=== PATIENT | female | born 2000 | race African-American/Black ===

== ENCOUNTER 2020-09-02 07:23 | Emergency (ER) | payer OTHER, SELFPAY ==
[2020-09-02] VITALS (14 sets, daily range): BP systolic 78–118; BP diastolic 50–77; PULSE 71–120; RESP 12–24; TEMP 36.7; O2SAT 95–100; BMI 34.1
--- NOTE | 2020-09-02 07:47 | ED.URI ---
HPI - URI/Sore Throat General Chief Complaint: Upper Respiratory Symptoms Stated Complaint: tonsils out and coughing up blood Time Seen by Provider: 09/02/20 07:37 Source: patient Mode of arrival: Ambulatory Limitations: no limitations History of Present Illness HPI Narrative: Patient is a 20-year-old female history of seizures postop day 1. Tonsillectomy presenting today with acute bleeding. She states she had tonsils taken out by Dr. montelongo yesterday in [place] was doing well in till about 3:00 a.m. which week got up to use the restroom she felt tickle in her throat started coughing and then was coughing up quite a bit of blood. She then later vomited a large amount of blood bringing her to the emergency department. She actually has quite a bit of dried blood all over her face hands and even feet. She still feels like it is bleeding some but overall it seems to have slowed. No dizziness or lightheadedness no longer nauseated Related Data Previous Rx's Medication Instructions Recorded ondansetron 4 mg PO Q8H PRN #10 tab 09/02/20 Allergies Allergy/AdvReac Type Severity Reaction Status Date / Time No Known Drug Allergies Allergy Verified 09/02/20 07:57 Review of Systems Review of Systems ROS Unobtainable: All systems reviewed & are unremarkable except as noted in HPI and below Constitutional Constitutional: Denies chills, Denies fever(s), Denies lethargy and Denies weakness ENT Ears, Nose, Mouth, and Throat: Reports as per HPI and Denies dizziness Cardiovascular Cardiovascular: Denies syncope, Denies dyspnea and Denies dyspnea on exertion Respiratory Respiratory: Denies cough, Denies dyspnea, Denies dyspnea on exertion and Denies wheezing Gastrointestinal Gastrointestinal: Denies abdominal pain, Denies change in bowel habits, Denies diarrhea, Denies nausea and Denies vomiting Integumentary/Breasts Skin/Breast: Denies pruritus, Denies erythema, Denies rash and Denies wounds Neurologic Neurologic: Denies dizziness, Denies syncope and Denies weakness Allergic/Immunologic Allergic/Immunologic: Denies wheezing Patient History Medical History Seizure Social History Smoking Status: Current every day smoker Smoking Status: Current every day smoker tobacco type: vaping Exam Initial Vital Signs Initial Vital Signs: Vital Signs Pulse Oximetry 98 09/02/20 07:51 GENERAL: Well-appearing, well-nourished and in no acute distress. HEENT: Head atraumatic,EOMI, pupils reactive, face symmetric, moist mucous membranes PHARYNX: No active bleeding noted at this time blood clot is noted on the right other postoperative changes noted on left CARDIOVASCULAR: Regular rate and rhythm without murmurs, rubs or gallops. RESPIRATORY: Breath sounds equal bilaterally, no wheezes rales or rhonchi. ABDOMEN: Soft, nontender. Normoactive bowel sounds all 4 quadrants. No guarding or rebound. EXTREMITIES: Normal range of motion, no clubbing or edema. Neurovascularly intact NEUROLOGICAL: Alert and oriented x4.Normal gait and speech. SKIN: Warm, dry, no laceration, no petechiae, no rashes or lesions. Course Orders Ordered: Discontinued Medications Albuterol/Ipratropium (Albuterol/Ipratropium 3 Ml Ampul) 3 ml INH NOW ONE Stop: 09/02/20 07:56 Last Admin: 09/02/20 08:03 Dose: Not Given Documented by: BAILEE Ondansetron HCl (Ondansetron 4 Mg Odt) 4 mg SL NOW ONE Stop: 09/02/20 11:35 Last Admin: 09/02/20 11:37 Dose: 4 mg Documented by: KELLY Tranexamic Acid (Tranexamic Acid 1,000 Mg Vial) 500 mg INH NOW ONE Stop: 09/02/20 07:43 Last Admin: 09/02/20 09:07 Dose: 500 mg Documented by: JARAD Vital Signs Vital signs: Vital Signs - 8 hr 09/02/20 10:00 09/02/20 10:30 09/02/20 11:00 Pulse Rate 77 89 87 Pulse Rate [Orthostatic Lying] Pulse Rate [Orthostatic Sitting] Pulse Rate [Orthostatic Standing] Respiratory Rate 15 17 15 Blood Pressure 95/59 L 102/64 106/71 Blood Pressure [Orthostatic Lying] Blood Pressure [Orthostatic Sitting] Blood Pressure [Orthostatic Standing] Pulse Oximetry 98 100 99 09/02/20 11:22 09/02/20 11:38 09/02/20 11:57 Pulse Rate 95 H Pulse Rate [Orthostatic Lying] 82 Pulse Rate [Orthostatic Sitting] 102 H Pulse Rate [Orthostatic Standing] 120 H Respiratory Rate 24 Blood Pressure 118/76 Blood Pressure [Orthostatic Lying] 107/77 Blood Pressure [Orthostatic Sitting] 106/77 Blood Pressure [Orthostatic Standing] 107/58 L Pulse Oximetry 09/02/20 13:07 Pulse Rate 84 Pulse Rate [Orthostatic Lying] Pulse Rate [Orthostatic Sitting] Pulse Rate [Orthostatic Standing] Respiratory Rate 16 Blood Pressure 96/65 Blood Pressure [Orthostatic Lying] Blood Pressure [Orthostatic Sitting] Blood Pressure [Orthostatic Standing] Pulse Oximetry 99 MDM - URI/Sore Throat Lab Data Attestation: I reviewed the patient's lab results. Result diagrams: 09/02/20 07:45 09/02/20 07:45 Labs: Lab Results 09/02/20 09/02/20 Range/Units 07:45 07:45 WBC 23.4 H (4.5-11.0) X10^3/uL RBC 5.06 (4.0-5.2) X10^6/uL Hgb 12.5 (12.0-16.0) g/dL Hct 39.4 (36-46) % MCV 77.8 L (80-100) fL MCH 24.6 L (26-34) PG MCHC 31.7 (30-36) % RDW 15.6 H (11.6-14.8) % Plt Count 308 (150-400) X10^3/uL Neut % (Auto) Not Reportable Lymph % (Auto) Not Reportable [place] % (Auto) Not Reportable Eos % (Auto) Not Reportable Baso % (Auto) Not Reportable Lymph # (Auto) Not Reportable [place] # (Auto) Not Reportable Baso # (Auto) Not Reportable Total Counted 100 Seg Neutrophils % 80.0 H (38-70) % Band Neutrophils % 5.0 (3-7) % Lymphocytes % (Manual) 8.0 L (25-45) % Atypical Lymphs % 2.0 H ( - 0) % Monocytes % (Manual) 5.0 (2-11) % Neutrophils # (Manual) 53731 H (7066-2333) /uL RBC Morphology Normal morphology Sodium 134 L (137-145) mmol/L Potassium 3.7 (3.4-5.1) mmol/L Chloride 100 (98-107) mmol/L Carbon Dioxide 29 (22-32) mmol/L BUN 10 (7-17) mg/dL Creatinine 0.70 (0.52-1.04) mg/dL Estimated GFR > 60.0 (>60) mL/min BUN/Creatinine Ratio 14.3 (6-22) Glucose 125 H (70-100) mg/dL Calcium 9.3 (8.4-10.2) mg/dL MDM Narrative Medical decision making narrative: Patient's bleeding seems to have slowed her airway is intact and she is maintaining it. I actually did see a blood clot on the right side. She is nebulized TXA to stabilize bleeding. 08:05 Dr. Burt ENT updated patient's symptoms test results at this time recommends continued monitoring. 9:00 a.m. Currently sleeping 10:00 a.m. patient is alert tolerating fluids. At discharge she got a real dizzy and lightheaded after IV was pulled. She was monitored and given ODT Zofran. Continues to complain of pain she took her own oxycodone. Discussed with her importance about swelling on top of pain medication and hydration. ENT a culture multiple times while in the emergency department. At this time she will follow up with them as outpatient. Discharge Plan Departure Patient Disposition: Home Clinical Impression: Post-tonsillectomy hemorrhage Instructions: DI for Tonsillectomy-Adult Activity Restrictions/Additional Instructions: *You have been diagnosed with post tonsillectomy bleeding *What to do: At this time continue to monitor. You are welcome to see Dr. Burt today in the office here in and a [place] when she leaves the emergency department. If you do not see then they will call you this afternoon to check on you. Recommend soft diet. *Continue to take medications as directed *Follow up with your primary care provider in 2-3 days *Return to ER if you should have bleeding or any new, worsening or concerning symptoms Prescriptions: New ondansetron 4 mg tablet,disintegrating 4 mg PO Q8H PRN (Reason: nausea and vomiting) Qty: 10 RF: 0 Referrals: Pradeep Burt MD [Physician] -
[2020-09-02 07:59] LABS: Hematocrit 39.4 % (36-46); Hemoglobin 12.5 g/dL (12.0-16.0); Mean Corpuscular HGB Conc 31.7 % (30-36); Mean Corpuscular Hemoglobin 24.6 PG (26-34); Mean Corpuscular Volume 77.8 fL (80-100); Platelet Count 308 X10^3/uL (150-400); Red Blood Cell Count 5.06 X10^6/uL (4.0-5.2); Red Cell Distribution Width 15.6 % (11.6-14.8); White Blood Cell Count 23.4 X10^3/uL (4.5-11.0)
[2020-09-02 08:00] LABS: Add Manual Diff / Slide Review YES
[2020-09-02 08:10] LABS: BUN Creatinine Ratio 14.3 (6-22); Blood Urea Nitrogen 10 mg/dL (7-17); Calcium 9.3 mg/dL (8.4-10.2); Carbon Dioxide 29 mmol/L (22-32); Chloride 100 mmol/L (98-107); Estimated Glomerular Filt Rate > 60.0 mL/min (>60); Glucose 125 mg/dL (70-100); HEMOLYSIS < 15 (0-50); Potassium 3.7 mmol/L (3.4-5.1); Sodium 134 mmol/L (137-145)
[2020-09-02 08:17] LABS: Neutrophils Absolute Manual 19890 /uL (3000-5900); RBC Morphology Normal Morphology; Total Cells Counted 100
--- NOTE | 2020-09-02 09:01 | PC.NURSE ---
received a call from Dr Javed Pedraza's nurse, to give an update.
[2020-09-02] MEDS: SODIUM CHLORIDE 0.9% 100 ML (09:07)
[2020-09-02] MEDS: TRANEXAMIC ACID 1,000 MG VIAL 500 MG INH (09:07)
[2020-09-02] MEDS: ONDANSETRON 4 MG ODT SL (11:37)
== END 2020-09-02 13:07 | disposition home or self-care (01) ==
PROVIDERS: Emergency Provider Emergency Medicine
DX: J95.830 Postprocedural hemorrhage of a respiratory system organ or structure following a respiratory system procedure (principal)
CPT/HCPCS: 36415; 80048; 85007; 85025; 94640; 99283; 99284

== ENCOUNTER 2020-09-05 06:18 | Emergency (ER) | payer OTHER, SELFPAY ==
[2020-09-05 06:25] VITALS: BP 127/73; PULSE 72; RESP 17; TEMP 36.2; O2SAT 97; BMI 34.1
--- NOTE | 2020-09-05 06:38 | ED.DENTAL ---
HPI - Dental/Oral General Chief complaint: Dental/Oral Stated complaint: still bleeding from tonsillectomy [id number] Time Seen by Provider: 09/05/20 06:25 Source: patient Mode of arrival: Ambulatory Limitations: no limitations History of Present Illness HPI Narrative: The patient is 4 days postop tonsillectomy. She was seen here the next day with postoperative bleeding. She returns this morning with complaints of pain. She was prescribed Percocet for pain. She does not speak to me during the interview, she simply response to questions but moving her head to respond yes or no to answers. She has no fever. She does have pain. She has had no bleeding. She has difficulty swelling. She has vomited. She has no difficulty breathing. She has no current abdominal pain. Related Data Previous Rx's Medication Instructions Recorded ondansetron 4 mg PO Q8H PRN #10 tab 09/02/20 Allergies Allergy/AdvReac Type Severity Reaction Status Date / Time No Known Drug Allergies Allergy Verified 09/02/20 07:57 Review of Systems Constitutional Constitutional: Reports as per HPI Comments: No additional details were obtained, the patient is alert and responsive, but has not spoken a single word in response to my questions. Patient History Medical History Seizure Surgical History (Updated 09/05/20 @ 06:54 by Richie Francis MD) Status post tonsillectomy Social History Smoking Status: Current every day smoker Smoking Status: Current every day smoker tobacco type: vaping alcohol intake frequency: 0-2 drinks per day Substance Use Type: does not use Exam Initial Vital Signs Initial Vital Signs: Vital Signs Temperature 97.2 F L 09/05/20 06:25 Pulse Rate 72 09/05/20 06:25 Respiratory Rate 17 09/05/20 06:25 Blood Pressure 127/73 09/05/20 06:25 Pulse Oximetry 97 09/05/20 06:25 Const General: cooperative, healthy appearing, well developed and well groomed [facility] Head: normocephalic and atraumatic Mouth: oral mucosae normal Throat: other (Erythema and eschar formation consistent with recent tonsillectomy. ) Neck Other: Bilateral tender anterior lymphadenopathy. No edema or subcu emphysema in the neck. Resp Auscultation: clear to auscultation bilaterally Cardio Rate: regular rate Rhythm: regular rhythm Heart Sounds: no click, no gallops, no murmurs and no rubs Pulses: normal peripheral pulses Skin General: no rashes or lesions noted Psych Other: Communicating by nodding only. Course Course Course Narrative: The patient has significant findings postop pain. She is not open her mouth, she is not taking in adequate fluids, I suspect. I have given her IV fluids, IV morphine, IV Toradol, and Decadron for current symptoms. She is referred back to her ENT physician, Dr. Bashir, to discuss her ongoing postop management. Vital Signs Vital signs: Vital Signs - 8 hr 09/05/ 06:25 Temperature 97.2 F L Pulse Rate 72 Respiratory Rate 17 Blood Pressure 127/73 Pulse Oximetry 97 Discharge Plan Departure Patient Disposition: Home Clinical Impression: Post-op pain, Status post tonsillectomy Instructions: DI for Postoperative Pain Activity Restrictions/Additional Instructions: Do your best to drink fluids and maintain hydration. Soft diet as tolerated. Children's ibuprofen 4 tsp every 6 hours as needed for pain. Contact her surgeon later today seeking his input with your current situation. Return to the ER as necessary. Prescriptions: No Action ondansetron 4 mg tablet,disintegrating 4 mg PO Q8H PRN (Reason: nausea and vomiting) Qty: 10 RF: 0
[2020-09-05] MEDS: SODIUM CHLORIDE 0.9% 1,000 ML 1000 ML IV (06:48)
[2020-09-05] MEDS: MORPHINE 4 MG/ML INJ IV (06:49)
[2020-09-05] MEDS: KETOROLAC 60 MG/2 ML VIAL 15 MG IV (06:49)
[2020-09-05 07:15] VITALS: PULSE 66; O2SAT 99
[2020-09-05] MEDS: dexAMETHasone 20 MG in SODIUM CHLORIDE 0.9% 50 ML 208 ML IV (07:16)
--- NOTE | 2020-09-05 07:22 | PC.NURSE ---
Pt reports having seizure post op and was placed on amitriptyline 25mg PO at night. States she has not had a dose in about a week due to being unable to tolerate swallowing the pill. Dr Francis made aware. No new orders at this time. pt receiving IVF and IV dexamethasone per MAR, appears in NAD.
[2020-09-05 07:30] VITALS: PULSE 65; O2SAT 100
[2020-09-05 08:00] VITALS: PULSE 70; O2SAT 99
[2020-09-05 08:26] VITALS: BP 112/61; PULSE 72; O2SAT 99
== END 2020-09-05 08:31 | disposition home or self-care (01) ==
PROVIDERS: Emergency Provider Emergency Medicine
DX: G89.18 Other acute postprocedural pain (principal); Z90.89 Acquired absence of other organs
CPT/HCPCS: 96361; 96365; 96375; 99283; 99284; J1100; J1885; J2270

== ENCOUNTER 2021-05-08 15:25 | Emergency (ER) | payer OTHER, SELFPAY ==
[2021-05-08 15:41] VITALS: PULSE 76; RESP 16; TEMP 36.3; O2SAT 98; BMI 36.0
[2021-05-08 17:12] LABS: Pregnancy Test Urine Negative (Negative)
[2021-05-08 17:31] LABS: RBC Urine >100/HPF (0-5/HPF); WBC Urine 1-5/HPF (0-5/HPF)
[2021-05-08 17:32] LABS: Culture Indicated Urine Cult Not Indicated
[2021-05-08 17:33] LABS: Bacteria Urine Few (2-10)
[2021-05-08 19:19] LABS: Add Manual Diff / Slide Review NO; Basophils Absolute Auto 100 /uL (0-100); Basophils Percent Auto 0.8 % (0-2); Eosinophils Absolute Auto 100 /uL (0-450); Hematocrit 36.7 % (36-46); Hemoglobin 11.6 g/dL (12.0-16.0); Lymphocytes Absolute Auto 1900 /uL (1100-4500); Lymphocytes Percent Auto 19.3 % (25-40); Mean Corpuscular HGB Conc 31.6 % (30-36); Mean Corpuscular Hemoglobin 22.3 PG (26-34); Mean Corpuscular Volume 70.5 fL (80-100); Monocytes Absolute Auto 700 /uL (0-900); Monocytes Percent Auto 7.1 % (3-14); Neutrophils Absolute Auto 7100 /uL (1500-7000); Neutrophils Percent Auto 71.8 % (50-75); Platelet Count 386 X10^3/uL (150-400); Red Cell Distribution Width 18.4 % (11.6-14.8); White Blood Cell Count 9.9 X10^3/uL (4.5-11.0)
[2021-05-08 19:29] LABS: BUN Creatinine Ratio 8.9 (6-22); Blood Urea Nitrogen 8 mg/dL (7-17); Carbon Dioxide 28 mmol/L (22-32); Chloride 103 mmol/L (98-107); Estimated Glomerular Filt Rate > 60.0 mL/min (>60); Glucose 88 mg/dL (70-100); HEMOLYSIS < 15 (0-50); Potassium 4.1 mmol/L (3.4-5.1); Sodium 139 mmol/L (137-145)
[2021-05-08 19:36] VITALS: PULSE 62; O2SAT 97
--- NOTE | 2021-05-08 19:56 | ED_ITS ---
HPI - General Adult General Chief complaint: Vaginal Bleeding Stated complaint: Woke Up in Pool of Blood, Pain in Stomach and Back Time Seen by Provider: 05/08/21 19:56 Source: patient Mode of arrival: Ambulatory History of Present Illness HPI narrative: 20-year-old woman presents with vaginal bleeding. She apparently has had dysfunctional bleeding for an extended period of time. Currently has a Nexplanon in place and has been in place since 2018. She had similar episode of severe bleeding in 2019 that ended up being a miscarriage(in the setting of Nexplanon in place). Additional control options were not apparently suggested. She notes that her last menstrual cycle was moderately heavy on April 22 through and for the last 48 hours she has been having heavy bleeding with clots. The she comes in for further evaluation. She notes that she gets somewhat dizzy when she stands up but not complaining of palpitations. No fevers, cough, abdominal pain, vomiting or diarrhea. She is complaining of some pelvic cramping that is radiating to her flanks bilaterally. Related Data Home Medications Medication Instructions Recorded Confirmed amitriptyline 25 mg tablet 25 mg PO BEDTIME 09/05/20 09/05/20 Previous Rx's Medication Instructions Recorded ondansetron 4 mg disintegrating 4 mg PO Q8H PRN #10 tab 09/02/20 tablet medroxyprogesterone 10 mg tablet 10 mg PO DAILY #80 tab 05/08/21 naproxen 375 mg tablet 375 mg PO BID #60 tab 05/08/21 Allergies Allergy/AdvReac Type Severity Reaction Status Date / Time No Known Drug Allergies Allergy Verified 05/08/21 15:48 Review of Systems Review of Systems Narrative: Remainder of complete review of systems is otherwise unremarkable except for that included in the HPI. Patient History Medical History Seizure Surgical History Status post tonsillectomy Social History Smoking Status: Current every day smoker Smoking Status: Current every day smoker tobacco type: vaping alcohol intake frequency: 0-2 drinks per day Substance Use Type: does not use Exam Narrative Exam Narrative: General: Healthy appearing, in no acute distress. Able to give a complete and coherent history. Well-nourished well-developed HEENT: Moist mucous membranes, normal sclera with reactive pupils, Respiratory: Lungs are clear to auscultation, no wheezing no rales no rhonchi. Full and symmetrical air movement Cardiac: Regular rate and rhythm no murmurs no bruits Abdomen: Soft, nontender, good bowel tones, no flank pain Skin: Warm and dry, no rashes Neurologic: Grossly neurologically intact with no obvious asymmetries or abnormalities Extremities: No trauma, well perfused Psych: Cooperative, appropriate insight and affect Bedside transabdominal pelvic ultrasound shows endometrial lining of 8 mm Initial Vital Signs Initial Vital Signs: Vital Signs Temperature 97.3 F L 05/08/21 15:41 Pulse Rate 76 05/08/21 15:41 Respiratory Rate 16 05/08/21 15:41 Pulse Oximetry 98 05/08/21 15:41 Course Orders Ordered: ED Orders 05/08/21 16:15 Test Urine Stat Urine Microscopic Stat 05/08/21 19:00 Basic Metabolic Panel Stat Complete Blood Count AUTO DIFF Stat Type and Screen Stat Discontinued Medications Medroxyprogesterone Acetate (Medroxyprogesterone Acetate 10 Mg Tablet) 20 mg PO NOW ONE Stop: 05/08/21 20:14 Naproxen (Naproxen 250 Mg Tablet) 500 mg PO NOW ONE Stop: 05/08/21 20:14 Vital Signs Vital signs: Vital Signs - 8 hr 05/08/21 15:41 05/08/21 19:36 05/08/21 20:00 Temperature 97.3 F L Pulse Rate 76 62 62 Respiratory Rate 16 Pulse Oximetry 98 97 100 Medical Decision Making Lab Data Result diagrams: 05/08/21 19:00 05/08/21 19:00 Labs: Lab Results 05/08/21 05/08/21 05/08/21 Range/Units 16:15 16:15 19:00 WBC 9.9 (4.5-11.0) X10^3/uL RBC 5.20 (4.0-5.2) X10^6/uL Hgb 11.6 L (12.0-16.0) g/dL Hct 36.7 (36-46) % MCV 70.5 L (80-100) fL MCH 22.3 L (26-34) PG MCHC 31.6 (30-36) % RDW 18.4 H (11.6-14.8) % Plt Count 386 (150-400) X10^3/uL Neut % (Auto) 71.8 (50-75) % Lymph % (Auto) 19.3 L (25-40) % [place] % (Auto) 7.1 (3-14) % Eos % (Auto) 1.0 L (2-4) % Baso % (Auto) 0.8 (0-2) % Neut # (Auto) 7100 H (2345-8149) /uL Lymph # (Auto) 1900 (5514-6333) /uL [place] # (Auto) 700 (0-900) /uL Eos # (Auto) 100 (0-450) /uL Baso # (Auto) 100 (0-100) /uL Sodium (137-145) mmol/L Potassium (3.4-5.1) mmol/L Chloride (98-107) mmol/L Carbon Dioxide (22-32) mmol/L BUN (7-17) mg/dL Creatinine (0.52-1.04) mg/dL Estimated GFR (>60) mL/min BUN/Creatinine Ratio (6-22) Glucose (70-100) mg/dL Calcium (8.4-10.2) mg/dL Urine RBC >100/hpf H (0-5/HPF) Urine WBC 1-5/hpf (0-5/HPF) Urine Bacteria Few (2-10) H (None) Ur Culture Indicated? Cult not indicated Urine Test Negative (Negative) Blood Type Antibody Screen 05/08/21 05/08/21 Range/Units 19:00 19:00 WBC (4.5-11.0) X10^3/uL RBC (4.0-5.2) X10^6/uL Hgb (12.0-16.0) g/dL Hct (36-46) % MCV (80-100) fL MCH (26-34) PG MCHC (30-36) % RDW (11.6-14.8) % Plt Count (150-400) X10^3/uL Neut % (Auto) (50-75) % Lymph % (Auto) (25-40) % [place] % (Auto) (3-14) % Eos % (Auto) (2-4) % Baso % (Auto) (0-2) % Neut # (Auto) (1023-7797) /uL Lymph # (Auto) (3982-3569) /uL [place] # (Auto) (0-900) /uL Eos # (Auto) (0-450) /uL Baso # (Auto) (0-100) /uL Sodium 139 (137-145) mmol/L Potassium 4.1 (3.4-5.1) mmol/L Chloride 103 (98-107) mmol/L Carbon Dioxide 28 (22-32) mmol/L BUN 8 (7-17) mg/dL Creatinine 0.90 (0.52-1.04) mg/dL Estimated GFR > 60.0 (>60) mL/min BUN/Creatinine Ratio 8.9 (6-22) Glucose 88 (70-100) mg/dL Calcium 9.0 (8.4-10.2) mg/dL Urine RBC (0-5/HPF) Urine WBC (0-5/HPF) Urine Bacteria (None) Ur Culture Indicated? Urine Test (Negative) Blood Type A Positive Antibody Screen Negative Urine Dip Bedside Urine Glucose Negative Bedside Urine Bilirubin - Negative Bedside Urine Ketone - Negative Urine Specific [place] 1.025 Bedside Urine Occult Blood +++ Bedside Urine pH 6.0 Bedside Urine Protein +/- 15 Bedside Urine Urobilinogen - Negative Bedside Urine Nitrite - Negative Bedside Urine Leukocytes - Negative Esterase Point of care testing: Urine Dip Bedside Urine Glucose Negative Bedside Urine Bilirubin - Negative Bedside Urine Ketone - Negative Urine Specific [place] 1.025 Bedside Urine Occult Blood +++ Bedside Urine pH 6.0 Bedside Urine Protein +/- 15 Bedside Urine Urobilinogen - Negative Bedside Urine Nitrite - Negative Bedside Urine Leukocytes - Negative Esterase [facility] Narrative Medical decision making narrative: 20-year-old woman with a history of heavy vaginal bleeding with Nexplanon in place tents 2019. For the last 48 hours has been having heavy vaginal bleeding. She is not . She is currently taking iron and vitamin-D per her [facility] doctor. H&H in August of 2020 is 12.5/39.4 today is 11.6/36.7. No evidence of orthostatic hypotension. Given her thickened endometrial lining will place her on medroxyprogesterone taper. See discharge instructions for details. Will ask her to follow-up with Dr. Casey at [facility]. Discharge Plan Departure Patient Disposition: Home Clinical Impression: Menometrorrhagia Instructions: DI for Menorrhagia Activity Restrictions/Additional Instructions: Thank you for coming in today Your blood work was fairly reassuring. Your hematocrit was 39.4 in August and today is 36.7. The size of your red blood cells is small indicating that you should continue your iron. You are not . Your bedside ultrasound shows of the lining of your uterus is fairly thick and that is part of your bleeding issue. I am going to place you on medroxyprogesterone taper to stabilizer bleeding. I would suggest that you follow-up with Dr. Casey, one of our OB GYNs at [facility], phone number is [phone], Progesterone taper 10 mg tablets 2 tablets every 2 hours until the bleeding stops or significantly slows down, Then 2 tablets every 4 hours for 48 hours 2 tablets every 6 hours for 48 hours 2 tablets every 8 hours for 48 hours 2 tablets every 12 hours for 48 hours 2 tablets a day for 7 days If your bleeding has not significantly slowed by Tuesday, it would be appropriate to return to the emergency department For cramping, I would recommend naproxen morning and evening until the bleeding and cramping have resolved. Prescriptions were sent to [facility] in [place] Prescriptions: New naproxen 375 mg tablet 375 mg PO BID Qty: 60 0RF medroxyprogesterone 10 mg tablet 10 mg PO DAILY Qty: 80 0RF Rx Instructions: Taper as directed, instruction in ER discharge paperwork No Action ondansetron 4 mg tablet,disintegrating 4 mg PO Q8H PRN (Reason: nausea and vomiting) Qty: 10 0RF amitriptyline 25 mg tablet 25 mg PO BEDTIME 0RF
[2021-05-08 20:00] VITALS: PULSE 62; O2SAT 100
[2021-05-08] MEDS: NAPROXEN 250 MG TABLET 500 MG PO (20:44)
[2021-05-08] MEDS: MEDROXYPROGESTERONE ACETATE 10 MG TABLET 20 MG PO (20:44)
[2021-05-08 20:46] VITALS: BP 124/76; PULSE 70; RESP 17; O2SAT 99
== END 2021-05-08 21:16 | disposition home or self-care (01) ==
PROVIDERS: Emergency Medicine; Emergency Provider Emergency Medicine
DX: N92.1 Excessive and frequent menstruation with irregular cycle (principal)
CPT/HCPCS: 36415; 80048; 81003; 81015; 81025; 85025; 86850; 86900; 86901; 99283

== ENCOUNTER 2021-07-14 08:31 | Emergency (ER) | payer OTHER, SELFPAY ==
[2021-07-14 09:21] VITALS: BP 119/66; PULSE 66; RESP 18; TEMP 35.9; O2SAT 98; BMI 36.0
--- NOTE | 2021-07-14 09:27 | DI.US.S_ITS ---
PROCEDURE: US PELVIC COMPLETE INDICATIONS: PAIN. STATUS POST INTRAUTERNIE DEVICE PLACEMENT TECHNIQUE: Real-time scanning was performed of the pelvic organs, with image documentation. Additional endovaginal scanning was necessary due to incomplete visualization of the adnexal and endometrial structures by transabdominal scanning. COMPARISON: None. FINDINGS: Uterus: Uterus is anteverted and normal in size at 8.4 x 1.5 x 3.9 cm. The myometrium is homogeneous. The endometrium measures 1.8 mm combined thickness. Intrauterine device is in the lower uterine segment. Left arm of the intrauterine device projects into the myometrium. Ovaries: The right ovary measures 4.7 by 3.1 x 2.8 cm. The left ovary measures 2.6 x 3.2 x 1.6 cm. There is a 4.0 by 2.2 by 2.5 centimeter right adnexal cyst. No adnexal masses are seen. Doppler evaluation demonstrates normal vascular flow in the ovaries. Other: No pathologic free abdominal or pelvic fluid. IMPRESSION: 1. Intrauterine device position in the lower uterine segment and left arm of the device penetrates into the myometrium projecting 4.7 millimeters from the serosal surface. 2. 4.0 x 2.2 x 2.5 centimeter right adnexal cyst. Dictated by: Tika Stephenson MD, PhD on 07/14/2021 at 10:27 Approved by: Tika Stephenson MD, PhD on 07/14/2021 at 10:45
--- NOTE | 2021-07-14 09:54 | ED_ITS ---
HPI - Female Genitourinary General Chief complaint: Urogenital-Female Stated complaint: pain in lower abd, uterus Time Seen by Provider: 07/14/21 10:42 Source: family Mode of arrival: Ambulatory History of Present Illness HPI Narrative: Patient is a 20-year-old female who presents with abdominal pain. She had IUD placed on based on July 02. She has had ever since continues to get worse. She started having some vaginal bleeding small amount today. She denies any painful or frequent urination. No abnormal vaginal discharge no fevers or chills. Related Data Home Medications Medication Instructions Recorded Confirmed amitriptyline 25 mg tablet 25 mg PO BEDTIME 09/05/20 09/05/20 Previous Rx's Medication Instructions Recorded ondansetron 4 mg disintegrating 4 mg PO Q8H PRN #10 tab 09/02/20 tablet medroxyprogesterone 10 mg tablet 10 mg PO DAILY #80 tab 05/08/21 naproxen 375 mg tablet 375 mg PO BID #60 tab 05/08/21 Allergies Allergy/AdvReac Type Severity Reaction Status Date / Time No Known Drug Allergies Allergy Verified 05/08/21 15:48 Review of Systems Review of Systems Narrative: GENERAL: Denies chills, fatigue, malaise, fever, sweats, travel HEENT: Denies sinus pain, ear pain, sore throat, difficulty swallowing, neck pain RESPIRATORY: Denies dyspnea, cough, wheezing, hemoptysis, sputum. CARDIOVASCULAR: Denies chest pain, palpitations, orthopnea, edema GASTROINTESTINAL: Denies nausea, vomiting, abdominal pain, diarrhea, constipation, melena. : Denies dysuria, frequency, incontinence, hematuria, urinary retention, flank pain. MATERIALS HANDLING EQUIPMENT OPERATOR: See HPI MUSCULOSKELETAL: Denies weakness, joint pain, or bony pain SKIN: No rash, no erythema, no pruritus NEUROLOGIC: Denies weakness, dizziness, headache, numbness, change in speech, confusion PSYCHIATRIC: No concerning psychosocial issues. 12 point review of systems is negative except for those stated above and HPI Patient History Medical History Seizure Surgical History Status post tonsillectomy tobacco type: vaping alcohol intake frequency: 0-2 drinks per day Substance Use Type: does not use Exam Initial Vital Signs Initial Vital Signs: Vital Signs Temperature 96.6 F L 07/14/21 09:21 Pulse Rate 66 07/14/21 09:21 Respiratory Rate 18 07/14/21 09:21 Blood Pressure 119/66 07/14/21 09:21 Pulse Oximetry 98 07/14/21 09:21 GENERAL: Alert 20-year-old female appears uncomfortable in no acute distress. HEENT: Head atraumatic,EOMI, pupils reactive, face symmetric, moist mucous membranes CARDIOVASCULAR: Regular rate and rhythm without murmurs, rubs or gallops. RESPIRATORY: Breath sounds equal bilaterally, no wheezes rales or rhonchi. ABDOMEN: Soft, tender suprapubic abdomen more right than left : No CVA tenderness EXTREMITIES: Normal range of motion, no clubbing or edema. Neurovascularly intact NEUROLOGICAL: Alert and oriented x4. SKIN: Warm, dry, no laceration, no petechiae, no rashes or lesions. Course Orders Ordered: ED Orders 07/14/21 09:27 US pelvic complete Stat Discontinued Medications Ketorolac Tromethamine (Ketorolac 30 Mg/Ml Vial) 30 mg IM NOW ONE Stop: 07/14/21 10:50 Last Admin: 07/14/21 11:02 Dose: 30 mg Documented by: TARIK Vital Signs Vital signs: Vital Signs - 8 hr 07/14/21 09:21 07/14/21 12:10 Temperature 96.6 F L Pulse Rate 66 74 Respiratory Rate 18 18 Blood Pressure 119/66 123/60 Pulse Oximetry 98 98 MDM - Female Genitourinary Lab Data Labs: Point of Care Testing Test Results Negative Urine Dip Bedside Urine Glucose Negative Bedside Urine Bilirubin - Negative Bedside Urine Ketone - Negative Urine Specific Alliance 1.030 Bedside Urine Occult Blood +++ Bedside Urine pH 6.0 Bedside Urine Protein - Negative Bedside Urine Urobilinogen - Negative Bedside Urine Nitrite - Negative Bedside Urine Leukocytes - Negative Esterase Imaging Data US - MATERIALS HANDLING EQUIPMENT OPERATOR: Radiologist's Impression: PROCEDURE:? US PELVIC COMPLETE ? INDICATIONS:? PAIN. STATUS POST INTRAUTERNIE DEVICE PLACEMENT ? TECHNIQUE:? Real-time scanning was performed of the pelvic organs, with image documentation.? Additional endovaginal scanning was necessary due to incomplete visualization of the adnexal and endometrial structures by transabdominal scanning.? ? COMPARISON:? None. ? FINDINGS:? ?? Uterus:? Uterus is anteverted and normal in size at 8.4 x 1.5 x 3.9 cm. The myometrium is homogeneous. ? The endometrium measures 1.8 mm combined thickness.? Intrauterine device is in the lower uterine segment.? Left arm of the intrauterine device projects into the myometrium. ? Ovaries:? The right ovary measures 4.7 by 3.1 x 2.8 cm. The left ovary measures 2.6 x 3.2 x 1.6 cm.? There is a 4.0 by 2.2 by 2.5 centimeter right adnexal cyst.? No adnexal masses are seen.? Doppler evaluation demonstrates normal vascular flow in the ovaries. ? Other:? No pathologic free abdominal or pelvic fluid. ? ? IMPRESSION:? ? 1. Intrauterine device position in the lower uterine segment and left arm of the device penetrates into the myometrium projecting 4.7 millimeters from the serosal surface. ? 2. 4.0 x 2.2 x 2.5 centimeter right adnexal cyst.? Dictated by: Tika Stephenson MD, PhD on 07/14/2021 at 10:27 ? ? Approved by: Tika Stephenson MD, PhD on 07/14/2021 at 10:45 ? MDM Narrative Medical decision making narrative: Discussion with Dr. Casey Ob states that can easily be pulled in the emergency department or with OB. Discussed with patient she would prefer be pulled here in the ED. I easily removed the IUD without significant pain or pulling. She was already having some bleeding no significant or worsening bleeding afterwards. Pain was immediately relieved after removal. Discussion with her about using other forms of control. Discharge Plan Departure Patient Disposition: Home Clinical Impression: IUD complication Instructions: Intrauterine Device Removal Activity Restrictions/Additional Instructions: *You have been diagnosed with IUD removal *What to do: At this time he will need to use another form of control such as condoms or the pill. Please follow-up with your OB. You may experience some bleeding and discomfort. The IUD was implanted into the myometrium *Continue to take medications as directed Ibuprofen 800 mg every 8 hours if needed for [id number] pain *Follow up with your primary care provider in 2-3 days or call [phone] *Return to ER if you should have excessive bleeding more than 2 super pads an hour, increased pain or any new, worsening or concerning symptoms Prescriptions: No Action ondansetron 4 mg tablet,disintegrating 4 mg PO Q8H PRN (Reason: nausea and vomiting) Qty: 10 0RF naproxen 375 mg tablet 375 mg PO BID Qty: 60 0RF medroxyprogesterone 10 mg tablet 10 mg PO DAILY Qty: 80 0RF Rx Instructions: Taper as directed, instruction in ER discharge paperwork amitriptyline 25 mg tablet 25 mg PO BEDTIME 0RF Referrals: [employer] [facility] [Provider Group] Stand Alone Forms: Work Release Note
[2021-07-14] MEDS: KETOROLAC 30 MG/ML VIAL IM (11:02)
[2021-07-14 12:10] VITALS: BP 123/60; PULSE 74; RESP 18; O2SAT 98
== END 2021-07-14 12:11 | disposition home or self-care (01) ==
PROVIDERS: Emergency Provider Emergency Medicine
DX: T83.84XA Pain due to genitourinary prosthetic devices, implants and grafts, initial encounter (principal)
CPT/HCPCS: 76830; 76856; 81003; 81025; 96372; 99283; J1885